=== PATIENT | female | born 1965 | race Caucasian/White ===

== ENCOUNTER 2018-07-08 19:32 | Emergency (ER) | payer OTHER ==
[~2018-07-08] VITALS: Ht 170.2 cm; Wt 79.4 kg
[~2018-07-08 19:32] MED LIST: AMOXICILLIN 50500 M1 PO; BACTRIM DS TAB1 EACH PO; CLONAZEPAM; LAMICTAL PO; NORCO 5-325 TA1 EACH PO; PHENERGAN12.5 MG RC; RANITIDINE; TOFRANIL-PM100 MG PO
[2018-07-08] MEDS ORDERED: ARMOUR THYROID15 M1 (19:50)
[2018-07-08] MEDS ORDERED: METFORMIN HCL500 MG (19:50)
[2018-07-08] MEDS ORDERED: CLONAZEPAM 0.50.5 M1 (19:51)
[2018-07-08] MEDS ORDERED: VITAMIN B-12500 MCG (19:51)
[2018-07-08 20:34] LABS: URINE BILIRUBIN NEGATIVE (Negative); URINE BLOOD NEGATIVE (Negative); URINE CLARITY CLEAR; URINE COLOR YELLOW; URINE GLUCOSE-RANDOM NEGATIVE (Negative); URINE KETONES NEGATIVE (Negative); URINE LEUKOCYTES-REFLEX NEGATIVE (Negative); URINE NITRITE-REFLEX NEGATIVE (Negative); URINE PROTEIN NEGATIVE (Negative); URINE UROBILINOGEN 0.2 E.U./dl (0.2-1.0)
[2018-07-08 20:43] LABS: ABSOLUTE BASOPHILS 0.1 thou/uL (0.0-0.2); ABSOLUTE EOSINOPHILS 0.3 thou/uL (0.0-0.7); ABSOLUTE MONOCYTES 0.6 thou/uL (0.0-1.2); ABSOLUTE NEUTROPHILS 9.2 thou/uL (1.6-8.1); BASOPHILS 0.7 %; EOSINOPHILS 2.3 %; LYMPHOCYTES 22.9 %; MCH 32.1 pg (26.0-34.0); MCV 94.6 fL (80.0-100.0); MONOCYTES 4.6 %; MPV 9.1 fl. (7.2-11.1); NUCLEATED RBCS 0 /100WBC; PLATELET COUNT* 235 thou/uL (150-400); POLYS 69.5 %; RBC 4.65 mil/uL (4.20-5.00); RDW-CV 12.9 % (10.5-14.5); WBC 13.3 thou/uL (4.0-11.0)
[2018-07-08 20:51] LABS: ANION GAP 4 mmol/L (7-16); BUN 12 mg/dL (7-18); CALCIUM 9.1 mg/dL (8.5-10.1); CHLORIDE 105 mmol/L (98-107); CO2 29 mmol/L (21-32); CREATININE 0.7 mg/dL (0.6-1.3); GLUCOSE 102 mg/dL (70-99); POTASSIUM 3.9 mmol/L (3.5-5.1); SODIUM 138 mmol/L (136-145)
[2018-07-08 20:53] LABS: APTT 44.7 Seconds (25.0-31.3); PROTIME 10.3 Seconds (9.20-11.50)
[2018-07-08 20:58] LABS: ALBUMIN 3.5 g/dL (3.4-5.0); ALKALINE PHOSPHATASE 60 U/L (46-116); SGOT 14 U/L (15-37); SGPT 20 U/L (30-65); TOTAL BILIRUBIN 0.3 mg/dL (<0.1-1.0); TOTAL PROTEIN 6.9 g/dL (6.4-8.2); TROPONIN-I LEVEL <0.06 ng/mL (<0.06)
[2018-07-08] MEDS ORDERED: ANTIVERT25 MG PO (22:26)
[2018-07-08 22:35] VITALS: BP 138/73
--- NOTE | 2018-07-09 12:58 | EKG ---
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
== END 2018-07-08 22:35 | disposition home or self-care (01) ==
LOC: M.ERS 19:32
PROVIDERS: Nurse Practitioner Psychiatric/Mental Health
DX: R42 Dizziness and giddiness (principal); D72.829 Elevated white blood cell count, unspecified; F17.200 Nicotine dependence, unspecified, uncomplicated; I95.1 Orthostatic hypotension; Z88.8 Allergy status to other drugs, medicaments and biological substances; Z88.1 Allergy status to other antibiotic agents; Z85.3 Personal history of malignant neoplasm of breast; Z90.13 Acquired absence of bilateral breasts and nipples; Z90.710 Acquired absence of both cervix and uterus

== ENCOUNTER 2018-12-30 12:20 | Emergency (ER) | payer OTHER ==
[~2018-12-30] VITALS: Ht 170.2 cm; Wt 79.4 kg
[~2018-12-30 12:20] MED LIST changes: +ANTIVERT25 MG PO; +ARMOUR THYROID15 M1; +CLONAZEPAM 0.50.5 M1; +METFORMIN HCL500 MG; +VITAMIN B-12500 MCG
[2018-12-30] MEDS ORDERED: VITAMINC500 PO (12:37)
[2018-12-30 13:32] VITALS: BP 115/66
[2018-12-30] MEDS ORDERED: ROBAXIN500 MG PO (13:35)
[2018-12-30] MEDS ORDERED: NAPROSYN500 MG PO (13:35)
--- NOTE | 2018-12-30 16:05 | EKG ---
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1965 Requested By: Rohit Hung Order Number: [id number] MD: Rusty Vogel Measurements Intervals [place] Rate: 91 P: 66 TN: 154 QRS: 7 QRSD: 84 T: 59 QT: 361 QTc: 445 Interpretive Statements Sinus rhythm Probable left atrial enlargement Low voltage, precordial leads Compared to ECG 07/08/2018 21:26:17 No significant changes Electronically Signed On 12-30-2018 16:05:16 IT IN[employer]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
== END 2018-12-30 13:54 | disposition home or self-care (01) ==
LOC: M.ERS 12:20
DX: H61.22 Impacted cerumen, left ear (principal); M50.10 Cervical disc disorder with radiculopathy, unspecified cervical region; G89.29 Other chronic pain; Z88.8 Allergy status to other drugs, medicaments and biological substances; Z88.1 Allergy status to other antibiotic agents; Z85.3 Personal history of malignant neoplasm of breast; Z90.13 Acquired absence of bilateral breasts and nipples; Z90.710 Acquired absence of both cervix and uterus